=== PATIENT | female | born 1945 | race Caucasian/White ===

== ENCOUNTER 2019-06-28 20:01 | Inpatient (IN) ==
[2019-06-28] MEDS ORDERED: ONDANSETRON 4 MG/2 ML VIAL ONE (20:05)
[2019-06-28] MEDS ORDERED: DILTIAZEM 25 MG/5 ML VIAL IV ONE (20:05)
[2019-06-28] MEDS ORDERED: ACETAMINOPHEN 500 MG TABLET ONE (20:07)
[2019-06-28] MEDS ORDERED: dilTIAZem Drip 125 MG/125 ML PREMIX IV ONE (20:18)
[2019-06-28] MEDS ORDERED: DILTIAZEM 50 MG/10 ML VIAL IV STA ×2 (20:21→21:24)
[2019-06-28] MEDS ORDERED: ONDANSETRON 4 MG/2 ML VIAL IV STA (20:22)
[2019-06-28] MEDS ORDERED: VANCOMYCIN INJ 1,250 MG in SODIUM CHLORIDE 0.9% 250 ML IV STA (20:27)
[2019-06-28] MEDS ORDERED: methylPREDNISolone SOD SUC 125 MG/2 ML VIAL IV STA (20:27)
[2019-06-28] MEDS ORDERED: SODIUM CHLORIDE 0.9% 1,000 ML IV STA ×2 (20:27→21:25)
[2019-06-28] MEDS ORDERED: PIPERACILLIN/TAZOBACTAM 3,375 MG in SODIUM CHLORIDE 0.9% 100 ML IV STA (20:27)
[2019-06-28] MEDS ORDERED: ALBUTEROL NEB SOLN 5 MG/ML 20 ML/BOTTLE CONT NEB STA (20:27)
[2019-06-28] MEDS ORDERED: dilTIAZem Drip 125 MG/125 ML PREMIX IV SCH (20:30)
[2019-06-28 20:41] LABS: Basophils # 0.1 10*3/uL (0.0-0.2); Basophils % 0.5 % (0.0-0.8); Hematocrit 50.2 VOL% (35.7-47.0); Hemoglobin 16.2 GM/DL (12.0-16.0); Immature Granulocytes % 0.9 %; Immature Granulocytes Absolute 0.19 #; Lymphocytes # 1.3 10*3/uL (1.4-4.0); Lymphocytes % 5.9 % (21.3-54.2); Mean Corpuscular HGB Conc 32.3 GM/DL (32-36); Mean Corpuscular Volume 98.4 FL (87-102); Mean Platelet Volume 10.5 FL (9.6-12.0); Monocytes % 6.4 % (1.7-12.7); Neutrophils % 86.3 % (38.7-73.9); Platelet Count 508 T/CUMM (130-400); Red Cell Distribution Width 13.9 % (9.3-17.3); White Blood Count 21.9 T/CUMM (4-12)
[2019-06-28 20:50] LABS: PT Patient Result 10.8 SECS (9.6-12.2)
[2019-06-28 21:00] LABS: Band Neutrophils 2 % (0-10); Lymphocytes 6 % (20-55); Segmented Neutrophils 88 % (50-85); Total Cells Counted 100
[2019-06-28 21:01] LABS: Macrocytosis Slight; Platelet Estimate Increased
[2019-06-28 21:03] LABS: Alanine Aminotransferase 21 U/L (13-56); Albumin 3.4 G/DL (3.4-5.0); Alkaline Phosphatase 57 U/L (45-117); Amylase 31 U/L (25-115); Aspartate Amino Transferase 16 U/L (0-37); Blood Urea Nitrogen 12 MG/DL (7-18); Calcium 9.3 MG/DL (8.5-10.1); Estimated Glom Filtration Rate 79 ML/MIN; Glucose 118 MG/DL (74-106); Total Protein 7.6 G/DL (6.4-8.3); Troponin I < 0.015 NG/ML (0.00-0.045)
[2019-06-28] MEDS ORDERED: DOPamine 800 MG/250 ML PREMIX IV PRN (22:29)
[2019-06-28] MEDS ORDERED: ZALEPLON 5 MG CAPSULE PO PRN (22:30)
[2019-06-28] MEDS ORDERED: DOCUSATE SODIUM 100 MG CAPSULE PO PRN (22:30)
[2019-06-28] MEDS ORDERED: ONDANSETRON 4 MG/2 ML VIAL IV PRN (22:30)
[2019-06-28] MEDS ORDERED: hydrALAZINE 20 MG/1 ML VIAL IV PRN (22:30)
[2019-06-28] MEDS ORDERED: MORPHINE 4 MG/1 ML VIAL IV PRN (22:30)
[2019-06-28] MEDS ORDERED: NICOTINE 21 MG/24 HR PATCH TRANSDERM PRN (22:30)
[2019-06-28] MEDS ORDERED: PROMETHAZINE 25 MG/1 ML VIAL IM PRN (22:30)
[2019-06-28] MEDS ORDERED: ALBUTEROL 2.5 MG/3 ML NEB RESP TX PRN (22:34)
[2019-06-28] MEDS ORDERED: AZITHROMYCIN INJ 500 MG in SODIUM CHLORIDE 0.9% 250 ML IV SCH (23:00)
[2019-06-29] MEDS: MEROPENEM 500 MG in SODIUM CHLORIDE 0.9% 100 ML IV SCH ×4 (00:15→18:50)
[2019-06-29] MEDS: ALBUTEROL/IPRATROPIUM 3 ML NEB RESP TX SCH ×7 (00:15→23:30)
[2019-06-29] MEDS ORDERED: NOREPINEPHRINE 4 MG/4 ML VIAL IV ONE (00:54)
[2019-06-29 01:02] LABS: Apearance,Urine Slightly Hazy (Clear); Bacteria,Urine Occasional /HPF (Few); Bilirubin,Urine Negative (Negative); Blood, Urine Negative (Negative); Glucose,Urine (UA) Negative (Negative); Hyaline Casts,Urine 3 /LPF (0-3); Ketones,Urine 20 mg/dL (Negative); Mucus,Urine Occasional /LPF (Occasional); Nitrite,Urine Negative (Negative); Protein,Urine 100 MG/DL; RBC,Urine 2 /HPF (0-4); Squamous Epithelial Cell,Urine Occasional /HPF (0-10); Urine Color Yellow (Yellow); Urine Specific Gravity 1.024 (1.001-1.035); Urine Urobilinogen < 2.0 EU/DL (0.2-1.0); WBC,Urine 1 /HPF (0-6)
[2019-06-29] MEDS: SODIUM CHLORIDE 0.9% 1,000 ML IV SCH ×2 (01:10→14:10)
[2019-06-29] MEDS: NOREPINEPHRINE 8 MG in SODIUM CHLORIDE 0.9% 242 ML IV PRN ×2 (01:10→07:20)
[2019-06-29 05:55] LABS: Basophils # 0.1 10*3/uL (0.0-0.2); Basophils % 0.3 % (0.0-0.8); Hematocrit 44.5 VOL% (35.7-47.0); Hemoglobin 14.6 GM/DL (12.0-16.0); Immature Granulocytes % 1.8 %; Immature Granulocytes Absolute 0.53 #; Lymphocytes # 0.9 10*3/uL (1.4-4.0); Lymphocytes % 2.9 % (21.3-54.2); Mean Corpuscular HGB Conc 32.8 GM/DL (32-36); Mean Corpuscular Volume 99.3 FL (87-102); Mean Platelet Volume 12.7 FL (9.6-12.0); Monocytes % 1.8 % (1.7-12.7); Neutrophils % 93.2 % (38.7-73.9); Platelet Count 438 T/CUMM (130-400); Red Blood Count 4.48 MC/CUMM (3.8-5.5); Red Cell Distribution Width 15.3 % (9.3-17.3); White Blood Count 30.2 T/CUMM (4-12)
[2019-06-29 06:06] LABS: Albumin 2.3 G/DL (3.4-5.0); Bilirubin,Total 0.9 MG/DL (0.2-1.0); Calcium 6.3 MG/DL (8.5-10.1); Osmolality,Calculated 294.1 MOS/KG (273-304); Total Protein 5.4 G/DL (6.4-8.3)
[2019-06-29 06:34] LABS: Band Neutrophils 6 % (0-10); Lymphocytes 2 % (20-55); Macrocytosis Slight; Platelet Estimate Adequate; Segmented Neutrophils 90 % (50-85); Total Cells Counted 100
[2019-06-29] MEDS: ACETAMINOPHEN 325 MG TABLET PO PRN (07:45)
[2019-06-29] MEDS: NICOTINE 21 MG/24 HR PATCH TRANSDERM SCH ×2 (10:01→18:21)
[2019-06-29] MEDS: ENOXAPARIN 40 MG/0.4 ML SYRINGE SUBCUT SCH (10:02)
[2019-06-29] MEDS: VANCOMYCIN INJ 1,250 MG in SODIUM CHLORIDE 0.9% 250 ML IV SCH ×2 (10:02→21:35)
[2019-06-29] MEDS: POTASSIUM CHLORIDE 20 MEQ TABLET PO PRN ×4 (10:02→18:51)
[2019-06-29] MEDS: PANTOPRAZOLE 40 MG TABLET PO SCH (10:02)
[2019-06-29] MEDS ORDERED: CALCIUM GLUCONATE 1,000 MG in SODIUM CHLORIDE 0.9% 100 ML IV ONE (12:00)
[2019-06-29] MEDS: AZITHROMYCIN 250 MG TABLET PO SCH (12:20)
[2019-06-30] MEDS: SODIUM CHLORIDE 0.9% 1,000 ML IV SCH ×3 (00:12→17:01)
[2019-06-30] MEDS: MEROPENEM 500 MG in SODIUM CHLORIDE 0.9% 100 ML IV SCH ×4 (00:13→21:30)
[2019-06-30 02:16] LABS: Basophils # 0.1 10*3/uL (0.0-0.2); Basophils % 0.2 % (0.0-0.8); Hematocrit 43.7 VOL% (35.7-47.0); Hemoglobin 13.8 GM/DL (12.0-16.0); Immature Granulocytes % 2.1 %; Immature Granulocytes Absolute 0.54 #; Lymphocytes # 1.4 10*3/uL (1.4-4.0); Lymphocytes % 5.2 % (21.3-54.2); Mean Corpuscular HGB Conc 31.6 GM/DL (32-36); Mean Corpuscular Volume 100.7 FL (87-102); Mean Platelet Volume 10.8 FL (9.6-12.0); Monocytes % 3.8 % (1.7-12.7); Neutrophils % 88.7 % (38.7-73.9); Platelet Count 469 T/CUMM (130-400); Red Blood Count 4.34 MC/CUMM (3.8-5.5); Red Cell Distribution Width 14.6 % (9.3-17.3); White Blood Count 26.3 T/CUMM (4-12)
[2019-06-30 02:37] LABS: Calcium 8.1 MG/DL (8.5-10.1); Osmolality,Calculated 287.8 MOS/KG (273-304)
[2019-06-30] MEDS: ALBUTEROL/IPRATROPIUM 3 ML NEB RESP TX SCH ×5 (02:45→19:46)
[2019-06-30 03:23] LABS: Anisocytosis 1+; Band Neutrophils 9 % (0-10); Lymphocytes 4 % (20-55); Platelet Estimate Normal; Segmented Neutrophils 85 % (50-85); Total Cells Counted 100
[2019-06-30] MEDS ORDERED: MAGNESIUM SULF RIDER 2 GM in PREMIX 1 EACH IV ONE (08:01)
[2019-06-30] MEDS: POTASSIUM CHLORIDE 20 MEQ TABLET PO PRN ×2 (08:38→13:00)
[2019-06-30] MEDS: guaiFENesin/CODEINE 5 ML LIQUID PO PRN ×2 (08:38→16:58)
[2019-06-30] MEDS: PANTOPRAZOLE 40 MG TABLET PO SCH (08:38)
[2019-06-30] MEDS: AZITHROMYCIN 250 MG TABLET PO SCH (08:38)
[2019-06-30] MEDS: VANCOMYCIN INJ 1,250 MG in SODIUM CHLORIDE 0.9% 250 ML IV SCH (08:39)
[2019-06-30] MEDS: NICOTINE 21 MG/24 HR PATCH TRANSDERM SCH (08:39)
[2019-06-30] MEDS: ENOXAPARIN 40 MG/0.4 ML SYRINGE SUBCUT SCH ×2 (08:39→09:33)
[2019-06-30] MEDS: BUDESONIDE/FORMOTEROL 160-4.5 INHALER 6 GM INH SCH ×2 (08:41→19:52)
[2019-06-30] MEDS ORDERED: NON-FORMULARY MEDICATION (Biotin 2,500 MCG) PO SCH (13:15)
[2019-06-30] MEDS: ACETAMINOPHEN 325 MG TABLET PO PRN (17:20)
[2019-06-30] MEDS ORDERED: LEVOTHYROXINE 75 MCG TABLET PO SCH (21:00)
[2019-06-30] MEDS ORDERED: SIMVASTATIN 20 MG TABLET PO SCH (21:00)
[2019-07-01] MEDS: ALBUTEROL/IPRATROPIUM 3 ML NEB RESP TX SCH ×3 (00:27→08:45)
[2019-07-01] MEDS: guaiFENesin/CODEINE 5 ML LIQUID PO PRN ×2 (00:46→08:18)
[2019-07-01] MEDS: ACETAMINOPHEN 325 MG TABLET PO PRN (00:46)
[2019-07-01] MEDS: MEROPENEM 500 MG in SODIUM CHLORIDE 0.9% 100 ML IV SCH ×2 (03:30→08:19)
[2019-07-01 05:04] LABS: Basophils # 0.1 10*3/uL (0.0-0.2); Basophils % 0.2 % (0.0-0.8); Hematocrit 41.6 VOL% (35.7-47.0); Hemoglobin 13.4 GM/DL (12.0-16.0); Immature Granulocytes % 1.4 %; Lymphocytes # 1.6 10*3/uL (1.4-4.0); Lymphocytes % 7.4 % (21.3-54.2); Mean Corpuscular HGB Conc 32.2 GM/DL (32-36); Mean Corpuscular Volume 99.8 FL (87-102); Mean Platelet Volume 10.7 FL (9.6-12.0); Monocytes % 3.8 % (1.7-12.7); Neutrophils % 87.2 % (38.7-73.9); Platelet Count 491 T/CUMM (130-400); Red Blood Count 4.17 MC/CUMM (3.8-5.5); White Blood Count 21.9 T/CUMM (4-12)
[2019-07-01 05:35] LABS: Band Neutrophils 3 % (0-10); Lymphocytes 9 % (20-55); Segmented Neutrophils 83 % (50-85); Total Cells Counted 100
[2019-07-01 05:36] LABS: Macrocytosis Slight; Platelet Estimate Increased
[2019-07-01 05:57] LABS: Calcium 8.1 MG/DL (8.5-10.1)
[2019-07-01] MEDS: SODIUM CHLORIDE 0.9% 1,000 ML IV SCH ×2 (06:12→08:04)
[2019-07-01] MEDS: ENOXAPARIN 40 MG/0.4 ML SYRINGE SUBCUT SCH (08:19)
[2019-07-01] MEDS: BUDESONIDE/FORMOTEROL 160-4.5 INHALER 6 GM INH SCH (08:19)
[2019-07-01] MEDS: AZITHROMYCIN 250 MG TABLET PO SCH (08:19)
[2019-07-01] MEDS: PANTOPRAZOLE 40 MG TABLET PO SCH (08:19)
[2019-07-01] MEDS: NICOTINE 21 MG/24 HR PATCH TRANSDERM SCH (08:20)
[2019-07-01 08:56] VITALS: BP 137/85
[2019-07-01] MEDS ORDERED: ASPIRIN EC 81 MG TABLET PO SCH (09:00)
[2019-07-01] MEDS ORDERED: cefTRIAXone 1,000 MG in SYRINGE 1 EACH IV SCH (12:00)
== END 2019-07-01 13:30 | disposition home or self-care (01) | DRG 871 ==
LOC: N.ED 20:01 → SUATTDRO 22:30 → N.EDINP 22:30 → N.CC 23:03 → N.2E 06-30 13:13 → N.CC 06-30 18:56
PROVIDERS: ADMIT Family Medicine; ATTEND Internal Medicine